=== PATIENT | male | born 1980 | race Two or more races ===

== ENCOUNTER 2024-02-06 05:43 | Emergency (ER) | payer MEDICAID, SELFPAY ==
[2024-02-06 05:44] VITALS: BMI 38.4
[2024-02-06 05:53] VITALS: BP 166/98; PULSE 103; RESP 19; TEMP 36.6; O2SAT 97
--- NOTE | 2024-02-06 06:10 | XR_ITS ---
Examination: Testicular sonography complete Technique: By resolution grayscale sonographic images testes, assessment arterial inflow venous outflow Doppler spectral analysis carful analysis Exam date and time: February 06, 2024 0725 hrs. Indications: Worsening bilateral testicular pain beginning 2 months ago Findings: Right testis 3.3 x 2.7 x 3.9 cm Epididymis 10 mm 5 mm epididymal cyst Arterial flow testicle. No testicular mass Left testis 3.8 x 2.4 x 3.3 cm Epididymis 14 mm Arterial flow testicle. No testicular mass Mild hydrocele Impression: No testicular torsion or testicular mass Right epididymitis
--- NOTE | 2024-02-06 06:10 | XR_ITS ---
Examination: CT abdomen and pelvis without contrast. Coronal 3-D reconstructions. Sagittal 2-D reconstructions. Date and time of exam:February 06, 2024 0620 hrs. Comparison December 20, 2019 Indications: Testicular pain lower back pain radiating to the back bilateral flank pain 3 days CTDI: vol (mGy): 12.51 DLP: (mGycm): 897 Technique: Axial images of the abdomen have been obtained, 3 mm slice thickness Intravenous contrast material has not been administered. Low dose protocols were performed. One or more of the following dose reduction techniques were used; automated exposure control, adjustment of the mA and/or KV according to patient size, use of iterative reconstruction technique. Findings: Cirrhosis, liver nodular in contour, no focal liver lesions Spleen, 16 cm No pancreatic or mass No adrenal mass Aorta normal size No renal or ureteral calculi, no hydronephrosis Normal appendix No bowel obstruction or diverticulitis Urinary bladder wall thickening up to 13 mm No prostatomegaly Fat-containing inguinal hernias Mild osteopenia Moderate disc narrowing L2-L3 Partial visualization bilateral varicoceles Impression: Cirrhosis Splenomegaly, 16 cm No renal or ureteral calculi, no hydronephrosis Mild bilateral renal parenchymal scar formation Normal appendix Cystitis pattern Moderate degenerative disc disease L2-L3 Partial visualization bilateral varicoceles, recommend testicular sonography follow-up
--- NOTE | 2024-02-06 06:10 | PD.EDRME ---
Rapid Medical Screening Exam RME Arrival date/time: 02/06/24 05:43 43-year-old male presents emergency department complaints of testicular pain and flank pain Chief Complaint: Back Pain/Injury Time Seen by Provider: 02/06/24 06:04 Vital signs: Vital Signs Temperature 97.9 F 02/06/24 05:53 Pulse Rate 103 H 02/06/24 05:53 Respiratory Rate 19 02/06/24 05:53 Blood Pressure 166/98 H 02/06/24 05:53 Pulse Oximetry (%) 97 02/06/24 05:53 Oxygen Delivery Method Room Air 02/06/24 05:53
[2024-02-06] MEDS: KETOROLAC INJ 30 MG/ML VIAL IM (06:19)
[2024-02-06] MEDS: HYDROcodone/APAP 5/325 TABLET 1 TAB PO (06:19)
--- NOTE | 2024-02-06 07:32 | PC.NURSE ---
Pt moving in bed due to pain, reports he recently was medicated for pain and that it is beginning to help. Pt currently at [facility].
[2024-02-06 08:11] VITALS: BP 152/99; PULSE 90; RESP 15; TEMP 36.8; O2SAT 99
[2024-02-06 09:23] LABS: Basophils % (Auto) 1 % (0-2.5); Eosinophils # (Auto) 0.1 Thou/mm3 (0.0-0.5); Eosinophils % (Auto) 1 % (0-10); Hemoglobin 13.1 g/dL (13.5-16.0); Immature Granulocytes % (Auto) 0 % (0-0); Immature Granulocytes Auto 0.03 Thou/mm3 (0.00-0.00); Lymphocytes # (Auto) 1.6 Thou/mm3 (1.0-4.8); Lymphocytes % (Auto) 20 % (10-50); Mean Corpuscular HGB Conc 35.4 g/dl (31.0-37.0); Mean Corpuscular Hemoglobin 31.3 pg (25.0-35.0); Mean Corpuscular Volume 89 fL (80-100); Monocytes # (Auto) 0.5 Thou/mm3 (0.0-0.8); Monocytes % (Auto) 6 % (0-12); Neutrophils % (Auto) 72 % (37-80); Nucleated Red Blood Cell % 0 /100 WBC (0); Platelet Count 207 Thou/mm3 (140-440); RDW Standard Deviation 39.8 fL (35.1-43.9); Red Blood Count 4.18 Miln/mm3 (4.50-5.90); White Blood Count 8.3 Thou/mm3 (3.8-10.6)
--- NOTE | 2024-02-06 09:27 | PD.EDBACK ---
ED Back Injury Pain RME/HPI General Chief Complaint: Back Pain/Injury Stated Complaint: LOWER BACK AND TESTICLE PAIN Time Seen by Provider: 02/06/24 06:04 Arrival date/time: 02/06/24 05:43 RME / HPI RME / HPI Narrative: 02/06/24 05:43 43-year-old male presents emergency department complaints of testicular pain and flank pain DR. ALONSO MAIN ED EVALUATION 43 year old male with history of hypertension and chronic testicular pain presents to the ED for complaint of worsening lower back pain beginning 4 days ago. Pain described as aching that is located more on the right lower back. Aggravated with movements and feels a popping sensation when he bends forward. Reportedly took time off work on Tuesday due to the back pain and rested the weekend. However pain did not improve, prompting ED visit. Denies any injury or trauma at work. Patient additionally complains of testicular pain which is unchanged from his chronic pain. Reportedly had been evaluated by urologist years ago for the testicular pain and told he has a cyst that is too small to do anything about it . States pain recurred 2 months ago and followed up with PCP at [facility] in [place] where he was referred to a urologist; scheduled to see urologist mid February. Also completed a round of antibiotics then. Denies dysuria or penile drip. Denies fevers, chills, sweats. Related Data Home Medications ?Medication ?Instructions ?Recorded ?Confirmed lorazepam 1 mg tablet (Ativan) 1 mg PO QDAY PRN Anxiety 01/27/23 08/17/23 Previous Rx's ?Medication ?Instructions ?Recorded doxycycline hyclate 100 mg capsule 100 mg PO BID #14 caps 12/11/23 diazepam 10 mg tablet (Valium) 10 mg PO BID PRN muscle spasm #3 02/06/24 tabs Allergies Allergy/AdvReac Type Severity Reaction Status Date / Time No Known Allergies Allergy Verified 08/16/23 05:57 Review of Systems Review of Systems Narrative Review of Systems: Gen: No fever, no chills, no weight loss EYES: No discharge, no visual changes, no pain HEENT: No ear pain, no congestion, no sore throat PULM: no shortness of breath, no cough, no congestion CV: No chest pain, no dyspnea on exertion, no palpitations, no chest tightness GI: No nausea, no vomiting, no diarrhea, no pain, no constipation : No frequency, no urgency,? no dysuria. +testicular pain Musc/skel: No joint pain, +back pain Skin: No rash, no ecchymosis, no lesions Psyc: No hallucinations, no depression Heme/Lymph: No easy bleeding or bruising tendencies Neuro: No weakness, no headache Past Medical History Past Medical History CARDIAC: Positive Cardiac Disorders and Hypercholesterolemia GASTROINTESTINAL: Positive Gastrointestinal Disorders, Cirrhosis, Gastrointestinal Bleed and Obesity MUSCULOSKELETAL: Positive Musculoskeletal Disorders PSYCHO/SOCIAL: Positive Anxiety OTHER HISTORY: Positive Hospitalization and Chicken Pox Family History FAMILY HISTORY: Negative Family Psychiatric Problems, Family Respiratory Disorders, Family Cardiac Disorders, Family Gastrointestinal Problems, Family Cancer, Family Surgery or Family Anesthesia Reaction Surgical History SURGICAL: Positive Knee Sx (Right Knee); Negative Vasectomy Social History SMOKING STATUS: Never smoker ED Exam Narrative Physical exam: GENERAL APPEARANCE: AxOx4, no obvious distress, nontoxic appearing HEENT: NC, AT. MMM. EOMI, clear conjunctiva, oropharynx clear. NECK: Supple without lymphadenopathy. No stiffness or restricted ROM. HEART: Normal rate and regular rhythm, normal S1/S1, no m/r/g LUNGS: CTAB, moving air well. No crackles or wheezes are heard. ABDOMEN: Soft, nontender, nondistended with good bowel sounds heard. BACK: Paraspinal muscle tenderness around L3-L5 area. Negative straight leg raise. No midline C/T spine pain or deformity, No CVAT, no obvious deformity. EXTREMITIES: Without cyanosis, clubbing or edema. MUSCULOSKELETAL: FROM of all major joints, no chest tenderness NEUROLOGICAL: Grossly nonfocal. Negative straight leg raise. Alert and oriented, moving all 4 extremities. CN not formally tested but appear grossly intact. Skin: Warm and dry without any rash. Course Quality Measures none Orders Category Date Time Status CT abdomen pelvis wo con Stat Exams 02/06/24 06:10 Completed US testicular Stat Exams 02/06/24 06:10 Completed CBC Stat Lab 02/06/24 09:01 Completed Comprehensive Metabolic Panel Stat Lab 02/06/24 09:01 Completed Drug Screen,Urine Stat Lab 02/06/24 06:10 Ordered Lipase Stat Lab 02/06/24 09:01 Completed UA, C/S IF [Urinalysis, C/S if Indicated] Stat Lab 02/06/24 06:10 Ordered Diazepam [Valium] Med 02/06/24 09:10 Discontinued 10 mg PO X1 ONE HYDROcodone*/APAP 5/325 [Crump 5/325] Med 02/06/24 06:10 Discontinued 1 tab PO X1 ONE Ketorolac Inj [Toradol Inj] Med 02/06/24 06:10 Discontinued 30 mg IM X1 ONE Reevaluation(s) Reevaluation #1: I discussed with the patient that the pain is chronic and ultrasound today showed epididymitis. Advised we would not treat and states he is okay with that and will follow up with his urologist next month February. Patient remains clinically stable throughout the emergency department visit. Patient is amenable to discharge. Strict return precautions were outlined. Patient was discharged in stable condition. Time: 09:45 Vital Signs Vital signs: Vital Signs Temperature 97.9 F 02/06/24 05:53 Pulse Rate 103 H 02/06/24 05:53 Respiratory Rate 19 02/06/24 05:53 Blood Pressure 166/98 H 02/06/24 05:53 Pulse Oximetry (%) 97 02/06/24 05:53 Oxygen Delivery Method Room Air 02/06/24 05:53 Pulse ox is 97% on room air which is adequate. Back Pain / Injury MDM Narrative MDM Narrative:: Munira Daily am scribing for and in the presence of Dr. Alonso. Patient data External records reviewed:: [facility] previous records (I reviewed ED visit on 12/11/2023 for epidydimitis ) Clinical information provided by:: patient Social determinants that could affect healthcare access:: none Patient has the following chronic illnesses:: hypertension and chronic testicular pain How is presenting disease/condition affected by chronic disease/condition?: exacerbated by Evaluation data The following diagnostics were reviewed and interpreted by me:: lab results and radiology exam(s) Lab and/or radiology exams considered but not ordered:: None Interpretation Summary: Ordering Physician: Asa HUFFMAN)Antoni NP Date of Service: 02/06/24 Procedure(s): CT abdomen pelvis wo con Accession Number(s): [id number] cc: Asa HUFFMAN)Antoni NP; Danie Watson MD~ Examination: CT abdomen and pelvis without contrast. Coronal 3-D reconstructions. Sagittal 2-D reconstructions. Date and time of exam:February 06, 2024 0620 hrs. Comparison December 20, 2019 Indications: Testicular pain lower back pain radiating to the back bilateral flank pain 3 days CTDI: vol (mGy): 12.51 DLP: (mGycm): 897 Technique: Axial images of the abdomen have been obtained, 3 mm slice thickness Intravenous contrast material has not been administered. Low dose protocols were performed. One or more of the following dose reduction techniques were used; automated exposure control, adjustment of the mA and/or KV according to patient size, use of iterative reconstruction technique. Findings: Cirrhosis, liver nodular in contour, no focal liver lesions Spleen, 16 cm No pancreatic or mass No adrenal mass Aorta normal size No renal or ureteral calculi, no hydronephrosis Normal appendix No bowel obstruction or diverticulitis Urinary bladder wall thickening up to 13 mm No prostatomegaly Fat-containing inguinal hernias Mild osteopenia Moderate disc narrowing L2-L3 Partial visualization bilateral varicoceles Impression: Cirrhosis Splenomegaly, 16 cm No renal or ureteral calculi, no hydronephrosis Mild bilateral renal parenchymal scar formation Normal appendix Cystitis pattern Moderate degenerative disc disease L2-L3 Partial visualization bilateral varicoceles, recommend testicular sonography follow-up Dictated By:Danie Watson MD Signed By:<Electronically signed by Danie Watson MD in [place]>02/06/24 0716 Ordering Physician: Asa HUFFMAN)Antoni NP Date of Service: 02/06/24 Procedure(s): US testicular Accession Number(s): [id number] cc: Antoni Bray NP, NP; Danie Watson MD; NO PRIMARY/FAMILY,PHYSICIAN~ Examination: Testicular sonography complete Technique: By resolution grayscale sonographic images testes, assessment arterial inflow venous outflow Doppler spectral analysis carful analysis Exam date and time: February 06, 2024 0725 hrs. Indications: Worsening bilateral testicular pain beginning 2 months ago Findings: Right testis 3.3 x 2.7 x 3.9 cm Epididymis 10 mm 5 mm epididymal cyst Arterial flow testicle. No testicular mass Left testis 3.8 x 2.4 x 3.3 cm Epididymis 14 mm Arterial flow testicle. No testicular mass Mild hydrocele Impression: No testicular torsion or testicular mass Right epididymitis Dictated By:Danie Watson MD Signed By:<Electronically signed by Danie Watson MD in OV>02/06/24 0820 Medications / Prescriptions Medications or Prescriptions considered but not ordered:: None Medication administrations:: Medication Administration History Discontinued Medications Hydrocodone Bitart/Acetaminophen (Hydrocodone/Apap 5/325 Tablet) 1 tab PO X1 ONE Stop: 02/06/24 06:11 Last Admin: 02/06/24 06:19 Dose: 1 tab Documented By: CVL Diazepam (Diazepam 5 Mg Tablet) 10 mg PO X1 ONE Stop: 02/06/24 09:11 Ketorolac Tromethamine (Ketorolac Inj 30 Mg/Ml Vial) 30 mg IM X1 ONE Stop: 02/06/24 06:11 Last Admin: 02/06/24 06:19 Dose: 30 mg Documented By: CVL See above Consultations Consultation(s) initiated? (list below): No Diagnosis Differential diagnosis back pain/injury: lumbar radiculopathy, sciatica, strain of lumbar region and discitis Most likely diagnosis given after review of the tests above:: Lumbar radiculopathy Admission Indicated Admission indicated?: not indicated Admission Request Was there a request for admission?: No Disposition Plan Disposition Plan: Discharge Discharge Attestation Discharge Attestation: The patient and all family members were given an opportunity to ask questions and understood the discharge instructions. Discharge instructions specifically effects, indications for sooner follow up or return to the emergency department, and the expected course of current diagnosis. Patient condition: Stable Discharge Plan Plan Patient Disposition: HOME (Self Care) Prescriptions/Referrals Prescriptions/Med Rec: New diazepam [Valium] 10 mg tablet 10 mg PO BID PRN (Reason: muscle spasm) Qty: 3 0RF No Action lorazepam [Ativan] 1 mg Tablet 1 mg PO QDAY PRN (Reason: Anxiety) doxycycline hyclate 100 mg capsule 100 mg PO BID Qty: 14 0RF Referrals: No Primary/Family,Physician [Primary Care Provider] - In 1 week Problem List Clinical Impression: Lumbar radiculopathy Patient/Caregiver Discharge Instructions Education Materials: Back Safety: Lifting, Back Safety: Basics of Good Posture, Back Exercises: Hip Rotator Stretch Additional Instructions: Follow-up with your primary care doctor as scheduled. Also follow-up with your urology appointment as scheduled. You can return to the emergency department sooner if symptoms worsen or if you notice any new, concerning issues. Print Language: Iraqi Stand Alone Forms: [employer]ore Award Info., Work/School Release, Patient Portal Info Letter
[2024-02-06 09:42] LABS: Alanine Aminotransferase 51 U/L (10-49); Albumin, Serum 4.4 gm/dL (3.5-5.0); Albumin/Globulin Ratio 1.4 (1.2-2.2); Alkaline Phosphatase 43 U/L (46-116); Anion Gap 6 (7-16); Aspartate Amino Transferase 32 U/L (0-34); BUN/Creatinine Ratio 20 Ratio (12-20); Bilirubin,Total 0.4 mg/dL (0.3-1.2); Blood Urea Nitrogen 14 mg/dL (9-23); Calcium 10.3 mg/dL (8.3-10.6); Calcium (Corrected) 10.3 mg/dL (8.5-10.1); Carbon Dioxide 25.8 mMol/L (20.0-31.0); Chloride 102 mMol/L (98-107); Creatinine (Component) 0.7 mg/dL (0.6-1.3); Estimated Creatinine Clearance 168.9 mL/min (>60); Globulin 3.1 gm/dL (2.3-3.5); Glucose 116 mg/dL (74-106); Lipase 65 U/L (12-53); Osmolality,Calculated 269 (275-295); Potassium 3.9 mMol/L (3.4-5.1); Sodium 134 mMol/L (136-145); Total Protein 7.5 gm/dL (5.7-8.2); eGFR > 60 See Note
[2024-02-06] MEDS: DIAZEPAM 5 MG TABLET 10 MG PO (10:10)
--- NOTE | 2024-02-06 10:15 | CHAP ---
Patient expressed gratitude for visit and prayer.
== END 2024-02-06 10:17 | disposition home or self-care (01) ==
PROVIDERS: Nurse Practitioner Primary Care; Emergency Provider Emergency Medicine
DX: N45.1 Epididymitis (principal); K74.60 Unspecified cirrhosis of liver; R16.1 Splenomegaly, not elsewhere classified; N28.89 Other specified disorders of kidney and ureter; I86.1 Scrotal varices; M51.16 Intervertebral disc disorders with radiculopathy, lumbar region
CPT/HCPCS: 36415; 74176; 76870; 80053; 80307; 81001; 83690; 85025; 96372; 99284; J1885; A9270

== ENCOUNTER 2024-05-09 12:15 | Day surgery (SDC) | payer MEDICAID, SELFPAY ==
[2024-05-08 11:40] VITALS: BMI 36.9
[2024-05-09] VITALS (10 sets, daily range): BP systolic 112–142; BP diastolic 78–98; PULSE 81–95; RESP 13–20; TEMP 36.6–36.7; O2SAT 97–100; BMI 36.1
[2024-05-09] MEDS: RINGERS LACTATED 1000 ML 1,000 ML 100 ML IV (14:58)
[2024-05-09] MEDS: DiphenhydrAMINE INJ 50 MG/ML VIAL 25 MG IV (15:00)
[2024-05-09] MEDS: fentaNYL CIT INJ 50 mCg/ML AMP 2ML (ASD USE ONLY) IV (15:01)
[2024-05-09] MEDS: MIDAZOLAM INJ 1 MG/ML VIAL 2 ML (ASD USE ONLY) 2 MG IV (15:02)
--- NOTE | 2024-05-09 15:23 | SUR.PHASEII ---
pateint into recovery with no acute distress noted, v/s stable, no complaints of pain or nausea at this time, patient passing flatus, report received from Radha XIONG.
== END 2024-05-09 16:07 | disposition home or self-care (01) ==
PROVIDERS: Referring Provider Surgery; Visit Provider Surgery
PROC: 0DBE8ZX Excision of Large Intestine, Via Natural or Artificial Opening Endoscopic, Diagnostic (ICD-10-PCS; CPT 45380; principal; 2024-05-09 13:45)
DX: Z12.11 Encounter for screening for malignant neoplasm of colon (principal)
CPT/HCPCS: 45378; J1200; J2250; J3010; J7120

== ENCOUNTER 2024-05-17 02:23 | Inpatient (IN) | payer MEDICAID, SELFPAY ==
[2024-05-17] VITALS (9 sets, daily range): BP systolic 108–165; BP diastolic 81–105; PULSE 82–96; RESP 16–26; TEMP 36.3–37.1; O2SAT 98–100; BMI 37.9; BMI 36.3
--- NOTE | 2024-05-17 03:12 | XR_ITS ---
Examination: CT abdomen with intravenous contrast CT pelvis with intravenous contrast 2-D coronal reconstructions 2-D sagittal reconstructions Date and time of exam:May 17, 2024 0428 hrs. Comparison February 06, 2024 Indications: Colonoscopy 2 days ago followed by left lower quadrant abdominal pain. CTDI: vol (mGy) 14.3 DLP: (mGycm) 971 Technique: Multiple axial sections of the abdomen and pelvis have been obtained. 64 slice high-resolution scanner used. 3 mm axial sections have been obtained, post intravenous injection 60 cc [id number] 2-D sagittal, coronal reconstructions obtained. Low dose protocols were performed. One or more of the following dose reduction techniques were used; automated exposure control, adjustment of the mA and/or KV according to patient size, use of iterative reconstruction technique. Findings: Mild wall thickening of the distal esophagus Cirrhosis, liver nodular in contour, no focal liver lesions No gallstones No pancreatic or adrenal mass Splenomegaly 16 cm No hydronephrosis Aorta normal size Multiple fluid distended small bowel loops measuring up to 3.7 cm in dimension 6 mm fat-containing umbilical hernia defect Normal appendix Colonic diverticulosis, no diverticulitis Mild enlargement prostate Fat-containing inguinal hernias Degenerative change lumbar spine Impression: Cirrhosis Splenomegaly Small bowel obstruction pattern, consider Gastrografin small bowel series follow-up
--- NOTE | 2024-05-17 03:13 | EDRME_ITS ---
Rapid Medical Screening Exam [facility] Arrival date/time: 05/17/24 02:23 43M with history of HTN, DM and alcohol use presents to ED with LLQ pain and N/V after his colonoscopy last week by Dr. Robert. Only diverticulosis was found. Chief Complaint: Abdominal Pain Vital signs: Vital Signs Temperature 97.7 F 05/17/24 03:01 Pulse Rate 92 05/17/24 03:01 Respiratory Rate 19 05/17/24 03:01 Blood Pressure 145/93 H 05/17/24 03:01 Pulse Oximetry (%) 99 05/17/24 03:01 Oxygen Delivery Method Room Air 05/17/24 03:01
[2024-05-17] MEDS: ONDANSETRON INJ 2 MG/ML INJ 2 ML 4 MG IV (03:29)
[2024-05-17 03:41] LABS: Basophils % (Auto) 0 % (0-2.5); Eosinophils # (Auto) 0.1 Thou/mm3 (0.0-0.5); Eosinophils % (Auto) 1 % (0-10); Hematocrit 38.8 % (41.0-53.0); Hemoglobin 14.2 g/dL (13.5-16.0); Immature Granulocytes % (Auto) 0 % (0-0); Immature Granulocytes Auto 0.03 Thou/mm3 (0.00-0.00); Lymphocytes # (Auto) 1.5 Thou/mm3 (1.0-4.8); Lymphocytes % (Auto) 19 % (10-50); Mean Corpuscular HGB Conc 36.6 g/dl (31.0-37.0); Mean Corpuscular Hemoglobin 29.8 pg (25.0-35.0); Mean Corpuscular Volume 81 fL (80-100); Monocytes # (Auto) 0.8 Thou/mm3 (0.0-0.8); Monocytes % (Auto) 10 % (0-12); Neutrophils # (Auto) 5.4 Thou/mm3 (1.8-7.7); Neutrophils % (Auto) 69 % (37-80); Nucleated Red Blood Cell % 0 /100 WBC (0); Platelet Count 192 Thou/mm3 (140-440); RDW Standard Deviation 37.8 fL (35.1-43.9); Red Blood Count 4.77 Miln/mm3 (4.50-5.90); White Blood Count 7.8 Thou/mm3 (3.8-10.6)
[2024-05-17 03:56] LABS: Alanine Aminotransferase 18 U/L (10-49); Albumin, Serum 4.6 gm/dL (3.5-5.0); Albumin/Globulin Ratio 1.4 (1.2-2.2); Alkaline Phosphatase 42 U/L (46-116); Anion Gap 9 (7-16); Aspartate Amino Transferase 21 U/L (0-34); BUN/Creatinine Ratio 14 Ratio (12-20); Bilirubin,Total 0.6 mg/dL (0.3-1.2); Blood Urea Nitrogen 10 mg/dL (9-23); Calcium 9.6 mg/dL (8.3-10.6); Calcium (Corrected) 9.6 mg/dL (8.5-10.1); Carbon Dioxide 26.6 mMol/L (20.0-31.0); Chloride 99 mMol/L (98-107); Creatinine (Component) 0.7 mg/dL (0.6-1.3); Estimated Creatinine Clearance 167.9 mL/min (>60); Globulin 3.2 gm/dL (2.3-3.5); Glucose 118 mg/dL (74-106); Lipase 105 U/L (12-53); Osmolality,Calculated 270 (275-295); Potassium 3.5 mMol/L (3.4-5.1); Sodium 135 mMol/L (136-145); Total Protein 7.8 gm/dL (5.7-8.2); eGFR > 60 See Note
[2024-05-17] MEDS: LORazepam 2 MG/ML VIAL IVP (04:06)
--- NOTE | 2024-05-17 04:23 | PC.NURSE ---
Pt to CT scan via wheelchair at this time.
[2024-05-17 04:39] LABS: Alcohol, Blood Medical < 3.0 mg/dL (0-10.0)
--- NOTE | 2024-05-17 05:20 | PRELIM_ITS ---
CT scan of the abdomen and pelvis with intravenous contrast (axial sections with sagittal and coronal reformats) May 17, 2024 at 0428 hours Clinical History: LLQ pain after colonoscopy Comparison: None Findings: A small hiatal hernia is present. There is mild wall thickening of the distal esophagus, which may be related to reflux esophagitis. The liver demonstrates surface nodularity with relative hypertrophy of the left lobe and caudate lobe, suggestive of cirrhosis. No focal hepatic lesions are seen. The main portal vein is dilated measuring 1.9 cm, suggestive of portal hypertension. There are small perigastric, and perisplenic collaterals. There is mild splenomegaly measuring 15.5 cm. The gallbladder, pancreas, kidneys and adrenals are unremarkable. There are multiple dilated small bowel loops demonstrates air fluid levels with probable transition in the proximal ileum. The mid and distal ileal loops are collapsed. There is no obstructing mass or hernia at the site of transition. There are multiple colonic diverticula without evidence of diverticulitis. The appendix is within normal limits (images [id number]). There is no mesenteric or retroperitoneal adenopathy. The aorta and its branches demonstrate atheromatous calcification without evidence of aneurysm. The urinary bladder is unremarkable. The prostate is mildly enlarged. There are [id number] sized fat containing bilateral inguinoscrotal hernias. No evidence of incarceration. There are small varicoceles in the scrotal sac. There is no free fluid or free air. Degenerative changes are identified in the spine. Impression: 1. Findings suggestive of small bowel obstruction with probable transition in the proximal ileum, likely related to adhesions. No evidence of bowel perforation or abscess. 2. Cirrhosis of liver with portal hypertension. 3. Other findings as described above. Report Electronically Signed By: Debra Barrera 05/17/2024 5:20:22 AM [EST]
--- NOTE | 2024-05-17 06:31 | PD.EDABDPN ---
ED Abdominal Pain RME/HPI General Chief Complaint: Abdominal Pain Stated complaint: LLQ PAIN X 2 DAYS WORSENING TODAY Time seen by provider: 05/17/24 06:31 Arrival date/time: 05/17/24 02:23 RME / HPI RME / HPI narrative: 05/17/24 02:23 43M with history of HTN, DM and alcohol use but quit 3 months ago as he now has cirrhosis presents to ED with abdominal distention with pain and N/V states he is vomiting 5 times a day and relates this to his colonoscopy for blood in the stool. Last week by Dr. Robert. Only diverticulosis was found. Related Data Home Medications ?Medication ?Instructions ?Recorded ?Confirmed folic acid 1 mg tablet 1 mg PO DAILY 05/08/24 05/09/24 lisinopril 40 mg tablet 40 mg PO DAILY 05/08/24 05/09/24 metformin 500 mg tablet 500 mg PO QDAY 05/08/24 05/09/24 Allergies Allergy/AdvReac Type Severity Reaction Status Date / Time No Known Allergies Allergy Verified 05/17/24 02:27 Review of Systems Review of Systems Narrative Review of Systems: Constitutional: DENIES; Fevers Eyes: DENIES; Loss of vision Head/Ear/Nose: DENIES; Loss of hearing Throat: DENIES; Dysphagia Cardiovascular: DENIES; Chest pain, dyspnea or syncope Respiratory: DENIES; Shortness of breath Gastrointestinal: +abd pain, nausea, vomiting, blood in stool Genitourinary: DENIES; Dysuria (painful or difficult urination) Musculoskeletal: DENIES; Arthralgia (pain in a joint),; Skin: DENIES; Rash Neurological: DENIES; Loss of function or movement Psychiatric: DENIES; recent major life stressor, emotional problem, illicit drug use or abuse Endocrinology: DENIES; Weight change Hematologic/Lymphatic: DENIES; Abnormal bruising Allergic/Immunologic: DENIES; Urticaria (hives) Past Medical History Past Medical History CARDIAC: Positive Cardiac Disorders and Hypercholesterolemia GASTROINTESTINAL: Positive Gastrointestinal Disorders, Cirrhosis, Gastrointestinal Bleed and Obesity ENDOCRINE: Positive Diabetes Mellitus Type 2 PSYCHO/SOCIAL: Positive Anxiety OTHER HISTORY: Positive Hospitalization and Chicken Pox Family History FAMILY HISTORY: Negative Family Psychiatric Problems, Family Respiratory Disorders, Family Cardiac Disorders, Family Gastrointestinal Problems, Family Cancer, Family Surgery or Family Anesthesia Reaction Surgical History SURGICAL: Negative Vasectomy Social History SMOKING STATUS: Never smoker ED Exam Narrative Physical exam: Physical Exam: General: The vital signs were reviewed. The patient is non-toxic, in no apparent distress and appears healthy with a patent airway, no respiratory distress and has no apparent circulatory problems. Head & Scalp: Normocephalic, atraumatic. Face: Appears normal and is without lesions, deformity. Ears: Left external pinna appears normal. Right external pinna appears normal. Eyes: The sclera is anicteric. No obvious photophobia. The Left and Right Orbit/Lid/Conjunctiva appears normal without swelling, discoloration or injection. Nose: The nose is without deformity, discharge or tenderness; Throat: Appears normal. The mucous membranes are pink and moist without exudates, redness or mass seen. The tongue appears normal. Neck: The neck is supple and no apparent mass or adenopathy. Chest: The chest wall is normal in size and symmetry and has no chest wall tenderness or crepitus. The patient displays normal ventilator effort without retractions, accessory muscle use and has adequate air movement bilaterally with no wheezes and no rales. Cardiovascular: Regular rate and rhythm; No murmurs, rubs, or gallops; Gastrointestinal: The abdomen is rotund and distended there are bowel sounds present . No obvious hernias or mass. The abdomen has mild tenderness diffusely Bowel sounds are present and normal sounding. No CVA tenderness. Genitourinary: Back/Spine: Normal Spektor and Extremities/Musculoskeletal/lymphatic: The bilateral upper and lower extremities are warm. There is no evidence of arterial insufficiency. There is no evidence of venous insufficiency/edema. The patient spontaneously moves bilateral upper and lower extremities with no pain and no limitation of movement. There is no apparent, injury or trauma. Skin: The skin is warm, dry and intact. No rashes. No petechia. No purpura. No abnormal bruising. The color is appropriate with no cyanosis. Mental status/Psychiatric: Mental status is appropriate for age. The patient has no apparent delusions, visual hallucinations, no apparent audible hallucinations. The patient has no apparent suicidal thoughts/ideation and no apparent homicidal thoughts/ideation. Neurological: The patient is awake, alert, interactive, cordial, cooperative and is oriented to name and situation. The patient follows commands and answers historical question with no impairment. There is no visual disturbance apparent. The pupils are equal and reactive bilaterally with normal eye movements and no diplopia The bilateral upper and lower extremities have normal strength, normal range of motion and normal functioning. The gait, station and balance were not tested due to acuity Course Quality Measures none Orders Category Date Time Status Admit to Inpatient Status Routine Admission 05/17/24 08:59 Active Patient Condition Routine Admission 05/17/24 08:59 Ordered Aspiration precautions NOW Care 05/17/24 09:[address] Screening NOW Care 05/17/24 03:13 Active Flu & Pneumonia Vaccine Screen ONCE Care 05/17/24 08:59 Active Insert IV NOW Care 05/17/24 03:12 Active NG / OG Tube to LIS NOW Care 05/17/24 06:39 Completed NPO NOW Care 05/17/24 09:00 Active Notify provider NEEDED Care 05/17/24 08:59 Active Sequential Compression Device QSHIFT Care 05/17/24 08:59 Active Consult to General Surgery Stat Cons 05/17/24 09:03 Ordered Diet NPO (NOW) Diet 05/17/24 09:[address] abdomen pelvis w con Stat Exams 05/17/24 03:12 Completed XR chest 1V post procedure Stat Exams 05/17/24 08:40 Taken XR small bowel single contrast Stat Exams 05/17/24 08:59 Ordered Alcohol, Blood Medical Stat Lab 05/17/24 03:28 Completed CBC AM DRAW Lab 05/18/24 05:00 Ordered CBC AM DRAW Lab 05/19/24 05:00 Ordered CBC AM DRAW Lab 05/20/24 05:00 Ordered CBC AM DRAW Lab 05/21/24 05:00 Ordered CBC AM DRAW Lab 05/22/24 05:00 Ordered CBC Stat Lab 05/17/24 03:28 Completed CMP [Comprehensive Metabolic Panel] Stat Lab 05/17/24 03:28 Completed Comprehensive Metabolic Panel AM DRAW Lab 05/18/24 05:00 Ordered Comprehensive Metabolic Panel AM DRAW Lab 05/19/24 05:00 Ordered Comprehensive Metabolic Panel AM DRAW Lab 05/20/24 05:00 Ordered Comprehensive Metabolic Panel AM DRAW Lab 05/21/24 05:00 Ordered Comprehensive Metabolic Panel AM DRAW Lab 05/22/24 05:00 Ordered Lactic Acid [Lactate (Lactic Acid)] Stat Lab 05/17/24 08:40 Ordered Lipase Stat Lab 05/17/24 03:28 Completed Magnesium AM DRAW Lab 05/18/24 05:00 Ordered Magnesium AM DRAW Lab 05/19/24 05:00 Ordered Magnesium AM DRAW Lab 05/20/24 05:00 Ordered Magnesium AM DRAW Lab 05/21/24 05:00 Ordered Magnesium AM DRAW Lab 05/22/24 05:00 Ordered Prothrombin Time with INR Stat Lab 05/17/24 09:02 Ordered UA [Urinalysis] Stat Lab 05/17/24 07:50 Completed Acetaminophen Tab [Tylenol Tab] Med 05/17/24 08:59 Active 650 mg PO Q6H PRN LORazepam [Ativan Inj] Med 05/17/24 04:04 Discontinued 2 mg IVP X1 ONE Metoclopramide [Reglan] Med 05/17/24 08:59 Active 10 mg PO Q6H PRN Ondansetron Inj [Zofran Inj] Med 05/17/24 03:12 Discontinued 4 mg IV X1 ONE Sodium Chloride 0.9% 1000 ml [Ns] 1,000 ml Med 05/17/24 09:00 Active IV 100 mls/hr Code Status Routine Oth 05/17/24 08:59 Ordered Vital Signs Vital signs: Vital Signs Temperature 97.7 F 05/17/24 03:01 Pulse Rate 92 05/17/24 03:01 Respiratory Rate 19 05/17/24 03:01 Blood Pressure 145/93 H 05/17/24 03:01 Pulse Oximetry (%) 99 05/17/24 03:01 Oxygen Delivery Method Room Air 05/17/24 03:01 Pulse ox is 99% on room air which is adequate. Abdominal Pain MDM MDM Narrative MDM Narrative:: Patient 43-year-old who comes in with distended abdomen for 7 days post colonoscopy with a white count of 7.8 hemoglobin of 14 to normal platelets CMP is essentially normal with sodium 135 potassium 3.5 BUN 10 creatinine 0.7 glucose is 118 AST ALT within normal limits. Bilirubin is 0.6. Albumin is 4.6. But most importantly CT scan came back positive for a small bowel obstruction. Patient will need to be admitted. Because he is unable to put an NG tube. Patient data External records reviewed:: [facility] previous records Clinical information provided by:: patient Social determinants that could affect healthcare access:: alcohol use Patient has the following chronic illnesses:: hypertension, diabetes, cirrhosis How is presenting disease/condition affected by chronic disease/condition?: exacerbated by Evaluation data The following diagnostics were reviewed and interpreted by me:: lab results and radiology exam(s) Lab and/or radiology exams considered but not ordered:: none Interpretation Summary: Ordering Physician: Oleg Renteria PA-C Date of Service: 05/17/24 Procedure(s): CT abdomen pelvis w con Accession Number(s): [id number] cc: Leodan Solorzano; Danie Watson MD; Oleg Renteria PA-C~ Examination: CT abdomen with intravenous contrast CT pelvis with intravenous contrast 2-D coronal reconstructions 2-D sagittal reconstructions Date and time of exam:May 17, 2024 0428 hrs. Comparison February 06, 2024 Indications: Colonoscopy 2 days ago followed by left lower quadrant abdominal pain. CTDI: vol (mGy) 14.3 DLP: (mGycm) 971 Technique: Multiple axial sections of the abdomen and pelvis have been obtained. 64 slice high-resolution scanner used. 3 mm axial sections have been obtained, post intravenous injection 60 cc [id number] 2-D sagittal, coronal reconstructions obtained. Low dose protocols were performed. One or more of the following dose reduction techniques were used; automated exposure control, adjustment of the mA and/or KV according to patient size, use of iterative reconstruction technique. Findings: Mild wall thickening of the distal esophagus Cirrhosis, liver nodular in contour, no focal liver lesions No gallstones No pancreatic or adrenal mass Splenomegaly 16 cm No hydronephrosis Aorta normal size Multiple fluid distended small bowel loops measuring up to 3.7 cm in dimension 6 mm fat-containing umbilical hernia defect Normal appendix Colonic diverticulosis, no diverticulitis Mild enlargement prostate Fat-containing inguinal hernias Degenerative change lumbar spine Impression: Cirrhosis Splenomegaly Small bowel obstruction pattern, consider Gastrografin small bowel series follow-up Dictated By: Danie Watson MD Signed By: <Electronically signed by Danie Watson MD in OV> 05/17/24 0651 Medications / Prescriptions Medications or Prescriptions considered but not ordered:: none Medication administrations:: Medication Administration History Acetaminophen (Acetaminophen 325 Mg Tablet) 650 mg PO Q6H PRN PRN Reason: PAIN SCALE 1-3 (mild Stop: 06/16/24 08:58 Sodium Chloride (Ns) 1,000 mls @ 100 mls/hr IV .Q10H DEIRDRE Stop: 06/16/24 08:59 Metoclopramide HCl (Metoclopramide 5 Mg Tablet) 10 mg PO Q6H PRN PRN Reason: NAUSEA OR VOMITING Stop: 06/16/24 08:58 Discontinued Medications Lorazepam (Lorazepam 2 Mg/Ml Vial) 2 mg IVP X1 ONE Stop: 05/17/24 04:05 Last Admin: 05/17/24 04:06 Dose: 2 mg Documented By: KG Ondansetron HCl (Ondansetron Inj 2 Mg/Ml Inj 2 Ml) 4 mg IV X1 ONE; Protocol Stop: 05/17/24 03:13 Last Admin: 05/17/24 03:29 Dose: 4 mg Documented By: KG see above Consultations Consultation(s) initiated? (list below): Yes Consultation #1 (Physician, Specialty, Details): I spoke with hospitalist team regarding admission. Diagnosis Differential diagnosis abdominal pain: abdominal pain, calculus of kidney, constipation, diverticulitis, pancreatitis and small bowel obstruction Most likely diagnosis given after review of the tests above:: SBO hx of etoh abuse cirrhosis vomiting Admission Indicated Admission indicated?: indicated Admission Request Was there a request for admission?: Yes Admission Attestation Admission request attestation: Discussed case with [] from Hospitalist service regarding admission. Discussed patients ED course, exam findings, labs, and radiology results. The Hospitalist [agrees,declines] to accept the patient for admission. Disposition Plan Disposition Plan: Admit Discharge Plan Plan Patient Disposition: Admit Acute Care w/in Hospital Problem List Clinical Impression: SBO (small bowel obstruction), History of ETOH abuse, Cirrhosis, Vomiting
[2024-05-17 08:31] LABS: Collection Type, Urine Clean Catch
--- NOTE | 2024-05-17 08:40 | XR_ITS ---
Examination: AP chest single view TECHNIQUE: AP portable semiupright chest single view Exam date and time: May 17, 2024 0858 hours INDICATIONS: Post orogastric tube placement FINDINGS: Orogastric tube sidehole is at the GE junction Mild prominence left ventricle No pneumonia or pulmonary edema IMPRESSION: Advance the orogastric tube 5 cm
[2024-05-17 08:47] LABS: Bacteria,Urine Rare; Bilirubin,Urine Negative (Negative); Blood,Urine Negative (Negative); Clarity,Urine Clear (Clear/Hazy); Color,Urine Lt-Yellow (Lt Yel-Yel); Glucose, Urine Negative (Negative); Ketones,Urine Negative (Negative); Leukocyte Esterase,Urine Negative (Negative); Nitrite,Urine Negative (Negative); PH,Urine 7.5 (5.0-7.0); Protein,Urine Negative (Neg - Trace); RBC,Urine 2 /hpf (0-3); Specific Gravity,Urine 1.026 (1.001-1.035); Squamous Epithelial Cell,Urine < 1 /hpf (0-5); Urobilinogen,Urine Negative mg/dL (0.0-1.0); WBC,Urine 1 /hpf (0-5)
--- NOTE | 2024-05-17 08:59 | XR_ITS ---
Examination: Small bowel series 7 spot fluoroscopic films of the stomach and small bowel AP supine abdomen films 20 minutes, 45 minutes postcontrast administration Exam date and time: 2024 0955 hours INDICATIONS: Abdominal pain and distention this week, small bowel obstruction pattern on CT abdomen pelvis May 17, 2024 0428 hours TECHNIQUE AND FINDINGS: Patient received 120 cc Gastrografin through the orogastric tube 7 spot fluoroscopic films of the stomach Fluoroscopy 0.1 minute radiation dose 29.21 milligray Abdomen films 20 minutes and 45 minutes demonstrate contrast in significantly air distended small bowel loops IMPRESSION: Small bowel obstruction pattern Multiple additional delayed films will be obtained
--- NOTE | 2024-05-17 11:33 | PC.CC ---
Patient is a 43 year-old who presents to the hospital for abdominal pain. Julia WHEAT made [id number] contact with patient. ASW introduced self, role, and reason for visit. Patient appeared alert and oriented to self, location, and situation. Patient confirmed information on the demographics and reports to living at home with his parents. Patient's next of kin is Sarina Espinosa . At home patient is ambulatory and completes his own ADLs. Patient does not use any DME at home. His primary care provider is Leodan Solorzano and uses [facility]. Upon discharge the patient plans to return back home. counseling services director to follow up with any discharge needs.
--- NOTE | 2024-05-17 11:43 | ESHP_ITS ---
<Statement entered by Chelsea Gann MD - 05/17/24 16:56> I discussed with and supervised the internal recruiter physician who took care of this patient. I personally saw and examined the patient and discussed the assessment and plan with the entire medicine team, including my attending Dr. Madrid, I agree with the assessment and plan as documented below Patient seen and examined at bedside today. Labs and imaging reviewed. 43-year-old man with past medical history of diabetes mellitus type 2, alcohol induced cirrhosis, history of diverticulosis, hypertension who came to the ED with chief complaint of severe abdominal pain. Patient stated approximately since last night started presenting after eating some tacos severe epigastric and left flank pain associated nausea and multiple episode of vomiting of bilious characteristics. Patient stated that approximately a week ago underwent colonoscopy and since then has been presenting some mild discomfort on the abdomen. At the ED patient was hypertensive, tachycardic saturating well on room air. Pertinent labs show elevated lipase 105, WBCs within normal limits, UA was negative, U tox was negative alcohol levels were negative. CT abdomen showed cirrhosis with splenomegaly and small bowel obstruction pattern. NG tube was placed to LIS, abdominal series with Gastrografin was ordered, general surgery was consulted and patient was admitted for further treatment and management of small bowel obstruction. Chelsea Gann MD PGY-3 Disclaimer: Despite multiple revisions, due to the dictation software being used, the document bellow may not be free of grammatical errors including phonetic/typographic errors. However, this does not deter from our commitment to providing health care in the patient's best interest in mind. Documentation for date of: 05/17/24 HPI History of Present Illness Chief complaint: Abdominal pain History of present illness: 43-year-old male with past medical history of hypertension, diabetes, cirrhosis, diverticulosis who came to the ED due to abdominal pain. Patient is scribes the pain in epigastric and left side of the abdomen. Patient also having nausea and vomiting total of 9 episodes prior to arriving to the ED nonbloody, nonbilious, mostly food particles. Of note patient did state he ate some weird tacos a 2 days ago. Patient used to be an alcoholic however he states he quit alcohol about approximately 3 months ago. Patient states he attributes his symptoms to colonoscopy had a week ago. On abdominal CT scan patient was found to have small bowel obstruction pattern patient will be admitted for small bowel obstruction. ED course: Vitals on arrival blood pressure 145/93, heart rate 92, saturating 99% on room air. Labs significant for lipase 105, alk phos 42, UA negative, toxicology negative for alcohol. Abdominal CT shows Cirrhosis, Splenomegaly, Small bowel obstruction pattern, consider Gastrografin small bowel series follow-up. NG tube was placed in the ED and was given Zofran, pantoprazole, lorazepam 2 mg PMHx: As above SxHx: Right knee surgery Social Hx: Quit drinking 3 months ago, denies cigarette use, denies illicit substances including THC F Hx: Unknown Review of Systems Review of Systems Narrative Review of Systems: Narrative ROS GENERAL: Denies fevers/chills or diaphoresis. HEENT: Denies headache or visual/hearing changes. Denies nasal discharge. NEURO: Denies unusual weakness or difficulty speaking. CARDIO: Denies chest pain or palpitations. PULM: Denies SOB, coughing, or wheezing. GI: + abdominal pain, +N/V/C/D/reflux/gas, denies bright red blood per rectum or melena. Reports having BMs. URO: Denies burning/itching/pain/urinary changes. MSK/EXT/SKIN: Denies joint/skeletal/muscle pain, issues/changes in upper or lower extremities, itchiness, or superficial pain. PSYCH: Cooperative, pleasant mood & affect. The rest of the review of systems is otherwise negative. Exam Vital Signs Temp Pulse Resp BP Pulse Ox O2 Del Method 98 F 96 18 160/97 H 100 Room Air 05/17/24 11:30 05/17/24 11:30 05/17/24 11:30 05/17/24 11:30 05/17/24 11:30 05/17/24 11:30 Narrative Exam Physical Exam GENERAL: NAD, AAOx3 HEENT: dry mucosa. Eyes open, symmetrical, & clear, NGT in place CARDIO: Heart RRR, no obvious murmurs PULM: No noted coughing/dyspnea CTA B/L, no R/W/R GI: Abdomen soft, distended, pain on palpation on left lower quadrant and epigastric regions.hypoactive bowel sounds SKIN/MSK/EXT: No wounds/rashes/edema/amputations, no pain on palpation. Pedal pulses present B/L NEURO: AAOx3, no focal neuro deficits, able to move all 4 extremities Results: Labs 05/18/24 05:11 05/18/24 05:11 Labs: Short CBC 05/17/24 Range/Units 03:28 WBC 7.8 (3.8-10.6) Thou/mm3 Hgb 14.2 (13.5-16.0) g/dL Hct 38.8 L (41.0-53.0) % Plt Count 192 (140-440) Thou/mm3 BMP 05/17/24 03:28 Sodium 135 L Potassium 3.5 Chloride 99 Carbon Dioxide 26.6 BUN 10 Creatinine 0.7 Glucose 118 H Calcium 9.6 Liver Function 05/17/24 Range/Units 03:28 Total Bilirubin 0.6 (0.3-1.2) mg/dL AST 21 (0-34) U/L ALT 18 (10-49) U/L Alkaline Phosphatase 42 L (46-116) U/L Albumin 4.6 (3.5-5.0) gm/dL Urine 05/17/24 Range/Units 07:50 Urine Color Lt-Yellow (Lt Yel-Yel) Urine Clarity Clear (Clear/Hazy) Urine pH 7.5 H (5.0-7.0) Ur Specific [place] 1.026 (1.001-1.035) Urine Protein Negative (Neg - Trace) Urine Glucose (UA) Negative (Negative) Quality Measures Quality Measures none Medications Home Medications and Allergies Home Medications ?Medication ?Instructions ?Recorded ?Confirmed ?Type folic acid 1 mg tablet 1 mg PO DAILY 05/08/2405/18 History lisinopril 40 mg tablet 40 mg PO DAILY 05/08/2410/05 History metformin 500 mg tablet 500 mg PO QDAY 05/08/2410/05 History Allergies Allergy/AdvReac Type Severity Reaction Status Date / Time No Known Allergies Allergy Verified 05/17/24 02:27 Visit Medications Acetaminophen (Acetaminophen 325 Mg Tablet) 650 mg PO Q6H PRN PRN Reason: PAIN SCALE 1-3 (mild Stop: 06/16/24 08:58 Sodium Chloride (Ns) 1,000 mls @ 100 mls/hr IV .Q10H DEIRDRE Stop: 06/16/24 08:59 Metoclopramide HCl (Metoclopramide 5 Mg Tablet) 10 mg PO Q6H PRN PRN Reason: NAUSEA OR VOMITING Stop: 06/16/24 08:58 Discontinued Medications Bisacodyl (Bisacodyl 10 Mg Supp) 10 mg OR X1 ONE; Protocol Stop: 05/17/24 11:25 Lorazepam (Lorazepam 2 Mg/Ml Vial) 2 mg IVP X1 ONE Stop: 05/17/24 04:05 Last Admin: 05/17/24 04:06 Dose: 2 mg Ondansetron HCl (Ondansetron Inj 2 Mg/Ml Inj 2 Ml) 4 mg IV X1 ONE; Protocol Stop: 05/17/24 03:13 Last Admin: 05/17/24 03:29 Dose: 4 mg Assessment & Plan Plan 42-year-old male history of hypertension, diabetes, cirrhosis who came to the ED to left lower quadrant abdominal pain with nausea and vomiting. Will be admitted for small bowel obstruction #Small bowel obstruction Patient came in with abdominal pain in the left lower quadrant epigastric region Patient has been having nausea and vomiting about [address] scan showed small bowel obstruction Small bowel series ordered shows obstruction relieving Patient passing flatus ? Encourage ambulation ? suppository given by general surgery ? N.p.o. ? Zofran ? NG tube light intermittent suction ? General Surgery Dr Carrington consulted, appreciate recommendations ? IV fluids at 100 cc/h #Type 2 noninsulin dependent Diabetes mellitus ? SSI ? Hypoglycemia protocol #Hypertension Per chart review patient takes lisinopril 40 mg daily Will resume when appropriate Case discussed with my senior Dr. Clements PGY-[address] Julius Moe MD PGY-1 Disposition: Med telemetry Fluids: NS Feeding: N.p.o. Thrombo prophylaxis: Heparin Gastric Ulcer prophylaxis: Pantoprazole CODE STATUS: Full code Attending Provider Attestation/Addendum Radha Daily DO, attest that I was physically present for the ramos portions of the service and evaluated the patient with the resident and I reviewed and discussed the case with the resident and agree with the resident's findings and plans of care as documented above Patient is a 43-year-old male with past medical history of hypertension with diabetes, cirrhosis, diverticulosis who was brought to the ED due to worsening abdominal pain. Patient states the pain began about 2 days ago. He reports diffuse and sharp pain and endorses nausea and vomiting since 5 PM yesterday. His last meal was yesterday evening after he ate [employer]. CT abdomen pelvis was done in the ED showing evidence of small bowel obstruction. Patient has never had previous episodes of SBO in the past. He did undergo a colonoscopy 2 days ago during which he was found to have sigmoid diverticulosis and otherwise negative colonoscopy. Will admit patient to med/telemetry for further workup and management of SBO. Surgery was consulted. NG tube placed in the ED on low intermittent suction. Will follow with small bowel follow-through.
[2024-05-17 11:44] LABS: Lactate (Lactic Acid) 0.8 mMol/L (0.4-2.0)
--- NOTE | 2024-05-17 12:00 | XR_ITS ---
Examination: Abdomen AP single view Technique: AP portable supine abdomen, single view Exam date and time: May 18, 1999 2519 hours INDICATIONS: 1.5 hour delayed film post small bowel series today, abdominal pain and distention, small bowel obstruction on CT abdomen pelvis May 17, 2024 FINDINGS: Contrast distended small bowel loops measuring up to 7 cm in dimension IMPRESSION: Small bowel obstruction pattern
[2024-05-17 12:03] LABS: INR 1.1 (0.9-1.3)
[2024-05-17] MEDS: bisacodyL 10 MG SUPP PR (13:19)
[2024-05-17] MEDS: SODIUM CHLORIDE 0.9% 1000 ML 1,000 ML 100 ML IV (13:19)
--- NOTE | 2024-05-17 13:30 | PD.SURCONS ---
HPI Consult details Consult date: 05/17/24 Reason for consultation narrative: Small bowel obstruction History of present illness: 43-year-old male with history of hypertension, alcohol use disorder (stopped drinking over 6 months ago) underwent colonoscopy last week that revealed diverticular disease. He states that he was eating and tolerating diet and was having bowel movement after colonoscopy. However, over the past 2 days he has had worsening abdominal pain with nausea and vomiting. His last bowel movement was yesterday. A CT scan revealed dilated loops of small bowel suggestive of small bowel obstruction without free air. An NG tube was placed and patient has been admitted for further management. His symptoms slightly improved and he started passing flatus. Review of Systems Constitutional Constitutional: Denies chills and Denies fever(s) Cardiovascular Cardiovascular: Denies chest pain Respiratory Respiratory: Denies cough Gastrointestinal Gastrointestinal: Reports abdominal pain, Denies nausea and Reports vomiting Genitourinary Genitourinary: Denies difficulty urinating Hematologic/Lymphatic Hematologic/Lymphatic: Denies easy bleeding and Denies easy bruising Past Medical History Surgical History OTHER SURGICAL HX: Arthroscopic right knee surgery Social History SMOKING STATUS: Never smoker SUBSTANCE USE: former substance user ALCOHOL: Former Meds Home Medications and Allergies Home Medications ?Medication ?Instructions ?Recorded ?Confirmed ?Type folic acid 1 mg tablet 1 mg PO DAILY 05/08/24 05/09/24 History lisinopril 40 mg tablet 40 mg PO DAILY 05/08/24 05/09/24 History metformin 500 mg tablet 500 mg PO QDAY 05/08/24 05/09/24 History Allergies Allergy/AdvReac Type Severity Reaction Status Date / Time No Known Allergies Allergy Verified 05/17/24 02:27 Exam Vital Signs Temp Pulse Resp BP Pulse Ox O2 Del Method 98 F 96 18 160/97 H 100 Room Air 05/17/24 11:30 05/17/24 11:30 05/17/24 11:30 05/17/24 11:30 05/17/24 11:30 05/17/24 11:30 Constitutional Constitutional: no acute distress Routine Abdominal Exam Comments: Abdomen is soft and mildly distended. He has minimal tenderness to deep palpation throughout abdomen, no rebound tenderness or peritonitis at this time. No obvious hernia defects noted Results Results: Laboratory Laboratory results: results reviewed Results: Imaging CT scan - abdomen: report reviewed and image reviewed CT scan - pelvis: report reviewed and image reviewed Assessment & Plan Problem List (1) SBO (small bowel obstruction): Status: Acute Plan Agree with current management. Continue NG tube decompression. Awaiting for small bowel series. Patient is advised to increase ambulation
[2024-05-17] MEDS: PANTOPRAZOLE INJ 40 MG VIAL IV (14:22)
--- NOTE | 2024-05-17 14:30 | XR_ITS ---
Examination: Abdomen AP single view Technique: AP portable supine abdomen, single view Exam date and time: May 17, 2024 1424 hrs. Indications: Forearm delayed film post small bowel series today. Findings: Contrast distended small bowel loops However, contrast is present in the colon Impression: Negative for complete small bowel obstruction No further films are needed
--- NOTE | 2024-05-17 16:30 | XR_ITS ---
Examination: Abdomen AP single view Technique: AP portable supine abdomen, single view Exam date and time: May 17, 2024 1635 hrs. Indications: 6 hour delayed film post small bowel series today, abdominal pain and distention this week. Findings: Contrast in distended small bowel loops However significant contrast is present: Impression: Negative for complete small bowel obstruction No further films are needed
--- NOTE | 2024-05-17 18:30 | XR_ITS ---
Examination: Abdomen AP single view Technique: AP portable supine abdomen, single view Exam date and time: May 17, 2024 1823 hrs. Indications: Abdominal pain and distention this week, 8 hour delayed film post small bowel series Findings: Almost all contrast is in the colon Impression: Negative for complete small bowel obstruction No further films are needed
--- NOTE | 2024-05-17 20:25 | PC.NURSE ---
Received call from radiology, no further films needed follow up with MD if suction is needed.
--- NOTE | 2024-05-17 20:45 | PC.NURSE ---
Called Dr. Leon regarding radiology call and report from small bowel series alogn with pt request to have NGT out and if any PO intake can be started, MD to look at report and chart and input orders.
[2024-05-18] VITALS: BP 132/93; PULSE 83; PULSE 85; RESP 17; TEMP 36.3; O2SAT 98
[2024-05-18] MEDS: SODIUM CHLORIDE 0.9% 1000 ML 1,000 ML 100 ML IV (00:10)
[2024-05-18 04:00] VITALS: BP 144/92; PULSE 91; RESP 17; TEMP 36.5; O2SAT 97
[2024-05-18 05:16] VITALS: PULSE 90
[2024-05-18 05:45] LABS: Basophils % (Auto) 0 % (0-2.5); Eosinophils # (Auto) 0.1 Thou/mm3 (0.0-0.5); Eosinophils % (Auto) 2 % (0-10); Hematocrit 37.3 % (41.0-53.0); Hemoglobin 13.1 g/dL (13.5-16.0); Immature Granulocytes % (Auto) 0 % (0-0); Immature Granulocytes Auto 0.02 Thou/mm3 (0.00-0.00); Lymphocytes # (Auto) 1.7 Thou/mm3 (1.0-4.8); Lymphocytes % (Auto) 31 % (10-50); Mean Corpuscular HGB Conc 35.1 g/dl (31.0-37.0); Mean Corpuscular Hemoglobin 29.6 pg (25.0-35.0); Mean Corpuscular Volume 84 fL (80-100); Monocytes # (Auto) 0.5 Thou/mm3 (0.0-0.8); Monocytes % (Auto) 10 % (0-12); Neutrophils # (Auto) 3.1 Thou/mm3 (1.8-7.7); Neutrophils % (Auto) 57 % (37-80); Nucleated Red Blood Cell % 0 /100 WBC (0); Platelet Count 175 Thou/mm3 (140-440); RDW Standard Deviation 40.1 fL (35.1-43.9); Red Blood Count 4.42 Miln/mm3 (4.50-5.90); White Blood Count 5.5 Thou/mm3 (3.8-10.6)
[2024-05-18 06:22] LABS: Alanine Aminotransferase 11 U/L (10-49); Albumin, Serum 3.7 gm/dL (3.5-5.0); Albumin/Globulin Ratio 1.2 (1.2-2.2); Alkaline Phosphatase 38 U/L (46-116); Anion Gap 7 (7-16); Aspartate Amino Transferase 17 U/L (0-34); BUN/Creatinine Ratio 10 Ratio (12-20); Bilirubin,Total 0.9 mg/dL (0.3-1.2); Blood Urea Nitrogen 8 mg/dL (9-23); Calcium 8.5 mg/dL (8.3-10.6); Calcium (Corrected) 8.7 mg/dL (8.5-10.1); Carbon Dioxide 27.3 mMol/L (20.0-31.0); Chloride 104 mMol/L (98-107); Creatinine (Component) 0.8 mg/dL (0.6-1.3); Estimated Creatinine Clearance 143.7 mL/min (>60); Glucose 101 mg/dL (74-106); Osmolality,Calculated 273 (275-295); Phosphorous 3.5 mg/dL (2.4-5.1); Potassium 4.4 mMol/L (3.4-5.1); Sodium 138 mMol/L (136-145); Total Protein 6.7 gm/dL (5.7-8.2); eGFR > 60 See Note
[2024-05-18 08:00] VITALS: BP 130/94; PULSE 80; PULSE 96; RESP 17; TEMP 36.3; O2SAT 97
[2024-05-18] MEDS: PANTOPRAZOLE INJ 40 MG VIAL IV (08:04)
[2024-05-18 12:00] VITALS: BP 155/105; PULSE 81; PULSE 87; RESP 16; TEMP 36.2; O2SAT 98
--- NOTE | 2024-05-18 12:00 | ESPR_ITS ---
Documentation for date of: 05/18/24 Subjective Subjective Narrative: Patient is seen and examined. He is feeling much better. Small bowel series did not show evidence of bowel obstruction. His NG tube was removed and he was started on diet, he is tolerating well and had multiple bowel movements Exam Vital Signs Temp Pulse Resp BP Pulse Ox O2 Del Method 97.4 F 96 17 130/94 H 97 Room Air 05/18/24 08:00 05/18/24 08:00 05/18/24 08:00 05/18/24 08:00 05/18/24 08:00 05/18/24 08:00 Constitutional Constitutional: no acute distress Routine Abdominal Exam Abdominal: Present soft and normoactive bowel sounds; Absent tenderness or diste nded Assessment & Plan Assessment Additional comments: Small bowel obstruction resolved Plan May discharge home
[2024-05-18 12:19] VITALS: BP 155/105; PULSE 86
[2024-05-18] MEDS: Lisinopril 20 MG TABLET 40 MG PO (12:19)
--- NOTE | 2024-05-18 15:18 | ESDS_ITS ---
<Statement entered by Radha Madrid DO - 05/19/24 07:31> I, Radha Madrid DO, attest that I was physically present for the ramos portions of the service and evaluated the patient with the resident and I reviewed and discussed the case with the resident and agree with the resident's findings and plans of care as documented above <Statement entered by Kaity Osborn MD - 05/18/24 17:11> I discussed with and supervised the internal controls analyst physician who took care of this patient. I personally saw and examined the patient and discussed the assessment and plan with the entire medicine team, including my attending Dr. Madrid, I agree with most of the assessment and plan as documented below Kaity Osborn M.D. PGY-2 Disclaimer: Despite multiple revisions, due to the dictation software being used, the document bellow may not be free of grammatical errors including phonetic/typographic errors. However, this does not deter from our commitment to providing health care in the patient's best interest in mind. Planned Discharge Date 05/18/24 DS: Providers Provider Date of admission: 05/17/24 09:22 Primary care physician: ELIZABETH Dai Admitting Provider: Radha Madrid DO Attending Provider on Admission: Radha Madrid DO Consults: 05/17/24 09:03 Consult to General Surgery Stat Comment: Consulting Provider: Christopher Carrington 05/17/24 13:51 [facility] Referral - Safety Routine Comment: Positive screening for safety needs. Attending Provider on DC: Radha Madrid DO Discharging Provider: Nahun Moe MD Anticipated date of discharge: 05/18/24 DS: Diagnosis Problem List Completed Was Problem List Reviewed/Reconciled?: Yes Hospital Course Hospital Course Hospital course: 43-year-old male with past medical history of hypertension, diabetes, cirrhosis, diverticulosis who came to the ED due to abdominal pain. Patient is scribes the pain in epigastric and left side of the abdomen. Patient also having nausea and vomiting total of 9 episodes prior to arriving to the ED nonbloody, nonbilious, mostly food particles. Of note patient did state he ate some weird tacos a 2 days ago. Patient used to be an alcoholic however he states he quit alcohol about approximately 3 months ago. Patient states he attributes his symptoms to colonoscopy had a week ago. On abdominal CT scan patient was found to have small bowel obstruction pattern patient will be admitted for small bowel obstruction. During hospital stay patient was found with small bowel obstruction on CT scan. Patient was decompressed with nasogastric tube on low intermittent suction, bowel rest, IV hydration and pain control. Patient had small bowel series and bowel regimen and small bowel obstruction was relieved. Patient has since been tolerating PO diet. Diabetes was managed with sliding scale insulin hypoglycemia protocol. Hypertension managed with patient's home medication. At this time patient is medically stable for discharge. All questions were answered and recommendations were given to come at the ED at anytime is he is not doing well or symptoms come back. follow up with PCP 1 week after discharge. Continue home medications as prescribed. Problem list: #Small bowel obstruction #Type 2 noninsulin dependent Diabetes mellitus #Hypertension Case discussed with my senior Dr. Osborn PGY-[address] Julius Moe MD PGY-1 Status at Discharge Functional status at discharge: independent ambulation Overall status at discharge: patient is back to baseline Time Spent with Patient Time attestation: Total time spent providing and/or coordinating discharge services: Time spent: Greater than 30 minutes Exam Vital Signs Temp Pulse Resp BP Pulse Ox O2 Del Method 97.2 F 86 16 155/105 H 98 Room Air 05/18/24 12:00 05/18/24 12:19 05/18/24 12:00 05/18/24 12:19 05/18/24 12:00 05/18/24 12:00 Narrative Exam Physical Exam GENERAL: NAD, AAOx3 HEENT: dry mucosa. Eyes open, symmetrical, & clear CARDIO: Heart RRR, no obvious murmurs PULM: No noted coughing/dyspnea CTA B/L, no R/W/R GI: Abdomen soft, no tenderness to palpation, bowel sounds appreciated SKIN/MSK/EXT: No wounds/rashes/edema/amputations, no pain on palpation. Pedal pulses present B/L NEURO: AAOx3, no focal neuro deficits, able to move all 4 extremities Discharge Plan Plan Patient Disposition: HOME (Self Care) Patient condition on transfer: Stable Care Plan Goals: all questions were answer and recommendations were given to come at the ED at anytime is he is not doing well or symptoms come back. follow up with PCP 1 week after discharge. - continue home medications Prescriptions/Referrals Prescriptions/Med Rec: Continued metformin 500 mg tablet 500 mg PO QDAY Patient Comments: TAKE 1 TABLET BY MOUTH EVERY DAY WITH A MEAL FOR 90 DAYS folic acid 1 mg tablet 1 mg PO DAILY Patient Comments: TAKE 1 TABLET BY MOUTH TWICE A DAY lisinopril 40 mg tablet 40 mg PO DAILY Patient Comments: TAKE 1 TABLET BY MOUTH EVERY DAY Referrals: Leodan Solorzano FNP [Primary Care Provider] - Patient/Caregiver Discharge Instructions Discharge Activity: activity as tolerated Education Materials: Small Bowel Obstruction Print Language: Guinean Stand Alone Forms: [employer] Award Info., Patient Portal Info Letter, Work/Release Restrictions Discharge Order Discharge Orders: Discharge (Routine); Ordered 05/18/24 Ordered By: Chelsea Gann Quality Discharge Quality Measures VTE prophylaxis
== END 2024-05-18 15:18 | disposition home or self-care (01) | DRG 247 ==
LOC: SERX 06:38 → SERHOLD 09:23 → S3SX 12:08
PROVIDERS: Physician Assistant; Student in an Organized Health Care Education/Training Program; Admitting Provider Internal Medicine; Emergency Provider Emergency Medicine; PCP Nurse Practitioner Family; Visit Provider Internal Medicine
DX: K56.609 Unspecified intestinal obstruction, unspecified as to partial versus complete obstruction (principal); K70.30 Alcoholic cirrhosis of liver without ascites; I10 Essential (primary) hypertension; E11.9 Type 2 diabetes mellitus without complications; R16.1 Splenomegaly, not elsewhere classified; F10.11 Alcohol abuse, in remission; Z87.19 Personal history of other diseases of the digestive system; Z79.84 Long term (current) use of oral hypoglycemic drugs; Z79.899 Other long term (current) drug therapy
CPT/HCPCS: 36415; 74018; 74177; 74250; 80053; 80320; 81001; 83605; 83690; 83735; 84100; 85025; 85610; 93225; 96374; 96375; 99285; A4649; J2060; J2405; J2470; J7030; Q9963; Q9967; A9270; G0480

== ENCOUNTER 2024-10-31 10:03 | Emergency (ER) | payer MEDICAID, SELFPAY ==
[2024-10-31 10:04] VITALS: BMI 37.6
[2024-10-31 10:13] VITALS: BP 160/92; PULSE 104; RESP 18; TEMP 36.7; O2SAT 96
--- NOTE | 2024-10-31 10:20 | PD.EDRME ---
Rapid Medical Screening Exam RME Arrival date/time: 10/31/24 10:03 44-year-old male presents to the emergency department today complains of right lower abdominal pain and abdominal swelling Chief Complaint: Abdominal Pain Time Seen by Provider: 10/31/24 10:17 Vital signs: Vital Signs Temperature 98.0 F 10/31/24 10:13 Pulse Rate 104 H 10/31/24 10:13 Respiratory Rate 18 10/31/24 10:13 Blood Pressure 160/92 H 10/31/24 10:13 Pulse Oximetry (%) 96 10/31/24 10:13 Oxygen Delivery Method Room Air 10/31/24 10:13
[2024-10-31 10:37] LABS: Basophils # (Auto) 0.0 Thou/mm3 (0.0-0.2); Basophils % (Auto) 1 % (0-2.5); Eosinophils # (Auto) 0.1 Thou/mm3 (0.0-0.5); Eosinophils % (Auto) 2 % (0-10); Hematocrit 41.1 % (41.0-53.0); Hemoglobin 14.0 g/dL (13.5-16.0); Immature Granulocytes Auto 0.01 Thou/mm3 (0.00-0.00); Lymphocytes # (Auto) 1.7 Thou/mm3 (1.0-4.8); Lymphocytes % (Auto) 31 % (10-50); Mean Corpuscular HGB Conc 34.1 g/dl (31.0-37.0); Mean Corpuscular Hemoglobin 29.9 pg (25.0-35.0); Mean Corpuscular Volume 88 fL (80-100); Monocytes # (Auto) 0.5 Thou/mm3 (0.0-0.8); Monocytes % (Auto) 8 % (0-12); Neutrophils # (Auto) 3.2 Thou/mm3 (1.8-7.7); Neutrophils % (Auto) 57 % (37-80); Nucleated Red Blood Cell # 0.00 Thou/mm3 (0.00-0.00); Nucleated Red Blood Cell % 0 /100 WBC (0); Platelet Count 188 Thou/mm3 (140-440); RDW Standard Deviation 41.5 fL (35.1-43.9); Red Blood Count 4.68 Miln/mm3 (4.50-5.90); White Blood Count 5.6 Thou/mm3 (3.8-10.6)
[2024-10-31 10:56] LABS: Alanine Aminotransferase 15 U/L (10-49); Albumin, Serum 4.4 gm/dL (3.5-5.0); Albumin/Globulin Ratio 1.5 (1.2-2.2); Alkaline Phosphatase 47 U/L (46-116); Anion Gap 10 (7-16); Aspartate Amino Transferase 19 U/L (0-34); BUN/Creatinine Ratio 18 Ratio (12-20); Bilirubin,Total 0.5 mg/dL (0.3-1.2); Blood Urea Nitrogen 14 mg/dL (9-23); Calcium 9.6 mg/dL (8.3-10.6); Calcium (Corrected) 9.6 mg/dL (8.5-10.1); Carbon Dioxide 27.2 mMol/L (20.0-31.0); Chloride 104 mMol/L (98-107); Creatinine (Component) 0.8 mg/dL (0.6-1.3); Estimated Creatinine Clearance 144.7 mL/min (>60); Globulin 2.9 gm/dL (2.3-3.5); Glucose 102 mg/dL (74-106); Lipase 140 U/L (12-53); Osmolality,Calculated 281 (275-295); Potassium 3.7 mMol/L (3.4-5.1); Sodium 141 mMol/L (136-145); Total Protein 7.3 gm/dL (5.7-8.2); eGFR > 60 See Note
[2024-10-31 11:07] LABS: Collection Type, Urine Clean Catch; Squamous Epithelial Cell,Urine 0 /hpf (0-5)
--- NOTE | 2024-10-31 11:08 | XR_ITS ---
Examination: CT abdomen with intravenous contrast CT pelvis with intravenous contrast 2-D coronal reconstructions 2-D sagittal reconstructions Date and time of exam:October 31, 2024 1208 hours INDICATIONS: Onset right lower abdominal pain today, diagnosis cirrhosis, splenomegaly COMPARISON: May 17, 2024. CTDI: vol (mGy) 14.9 DLP: (mGycm) 1052 Technique: Multiple axial sections of the abdomen and pelvis have been obtained. 64 slice high-resolution scanner used. 3 mm axial sections have been obtained, post intravenous injection 60 cc [id number] 2-D sagittal, coronal reconstructions obtained. Low dose protocols were performed. One or more of the following dose reduction techniques were used; automated exposure control, adjustment of the mA and/or KV according to patient size, use of iterative reconstruction technique. Findings: Cirrhosis, liver nodular in contour, no focal liver lesions Contracted gallbladder Splenomegaly 16 cm No pancreatic or adrenal mass No ascites No renal or ureteral calculi, no hydronephrosis Normal appendix No bowel obstruction Colonic diverticulosis, no diverticulitis Transverse prostate dimension 4.1 cm Urinary bladder wall thickening 3 mm Moderate osteopenia IMPRESSION: Cirrhosis Significant splenomegaly No ascites No renal or ureteral calculi, no hydronephrosis Normal appendix No bowel obstruction Mild cystitis pattern
[2024-10-31 11:24] LABS: Alcohol, Urine Negative (Negative); Amphetamine/Methamp Scrn,U Positive (Negative); Barbiturate Screen,Urine Negative (Negative); Benzodiazepines Screen,Urine Negative (Negative); Benzoylecgonine Screen, Ur Negative (Negative); Fentanyl Screen,Urine Negative (Negative); Opiate Screen,Urine Negative (Negative); THC Screen,Urine Negative (Negative)
[2024-10-31] MEDS: KETOROLAC INJ 30 MG/ML VIAL IM (11:34)
[2024-10-31 11:38] LABS: Bilirubin,Urine Negative (Negative); Blood,Urine Negative (Negative); Clarity,Urine Clear (Clear/Hazy); Color,Urine Yellow (Lt Yel-Yel); Culture Indicated,Urine Not Indicated; Glucose, Urine Negative (Negative); Ketones,Urine Negative (Negative); Leukocyte Esterase,Urine Negative (Negative); Nitrite,Urine Negative (Negative); PH,Urine 6.0 (5.0-7.0); Protein,Urine Negative (Neg - Trace); RBC,Urine 2 /hpf (0-3); Specific Gravity,Urine 1.024 (1.001-1.035); Urobilinogen,Urine Negative mg/dL (0.0-1.0); WBC,Urine 1 /hpf (0-5)
--- NOTE | 2024-10-31 13:09 | PD.EDABDPN ---
ED Abdominal Pain RME/HPI General Chief Complaint: Abdominal Pain Stated complaint: LUMP RLQ ABD Time seen by provider: 10/31/24 10:17 Arrival date/time: 10/31/24 10:03 Source: patient Limitations: no limitations RME / HPI RME / HPI narrative: Patient is 44-year-old male with a history of hypertension, diabetes, and ongoing alcohol abuse. He has known cirrhosis. He states he has decreased his drinking but still drinks every other day . He denies any recent nausea or vomiting. No changes in bowel movements. No flank pain or dysuria. No fevers or chills. He states he has ongoing abdominal distention and has developed a right sided abdominal discomfort. He has no other acute complaints or concerns. Related Data Home Medications ?Medication ?Instructions ?Recorded ?Confirmed folic acid 1 mg tablet 1 mg PO DAILY 05/08/24 05/18/24 lisinopril 40 mg tablet 40 mg PO DAILY 05/08/24 05/18/24 metformin 500 mg tablet 500 mg PO QDAY 05/08/24 05/18/24 Allergies Allergy/AdvReac Type Severity Reaction Status Date / Time No Known Allergies Allergy Verified 10/31/24 10:05 Review of Systems Review of Systems Systems Reviewed: All systems reviewed, normal except as documented ED Exam General Limitations: Present no limitations General appearance: Present alert and in no apparent distress Head Head exam: Present atraumatic Eye Eye exam: Present normal appearance, PERRL and EOMI ENT ENT exam: Present normal exam, normal oropharynx and mucous membranes moist Neck Neck exam: Present normal inspection, full ROM and trachea midline Chest Chest inspection: Present normal inspection and symmetric chest wall rise Respiratory Respiratory exam: Present normal lung sounds bilaterally Cardiovascular Cardiovascular exam: Present regular rate, normal rhythm and normal heart sounds Abdominal Exam Abdominal exam: Present soft and distention; Absent tenderness or rebound Extremities Exam Extremities exam: Present normal inspection and full ROM Back Exam Back exam: Present normal inspection and full ROM Neurological Exam Neurological exam: Present alert and oriented X3 Psychiatric Psychiatric exam: Present normal affect and normal mood Skin Skin exam: Present warm, dry, intact and normal color Course Quality Measures none Orders Category Date Time Status CT Screening NOW Care 10/31/24 11:08 Active Insert IV NOW Care 10/31/24 11:[address] abdomen pelvis w con Stat Exams 10/31/24 11:08 Completed Alcohol, Urine Stat Lab 10/31/24 10:37 Completed CBC Stat Lab 10/31/24 10:26 Completed Comprehensive Metabolic Panel Stat Lab 10/31/24 10:26 Completed Drug Screen,Urine Stat Lab 10/31/24 10:37 Completed Lipase Stat Lab 10/31/24 10:26 Completed UA, C/S IF [Urinalysis, C/S if Indicated] Stat Lab 10/31/24 10:37 Completed Ketorolac Inj [Toradol Inj] Med 10/31/24 11:08 Discontinued 30 mg IM X1 ONE Vital Signs Vital signs: Vital Signs Temperature 98.0 F 10/31/24 10:13 Pulse Rate 104 H 10/31/24 10:13 Respiratory Rate 18 10/31/24 10:13 Blood Pressure 160/92 H 10/31/24 10:13 Pulse Oximetry (%) 96 10/31/24 10:13 Oxygen Delivery Method Room Air 10/31/24 10:13 Abdominal Pain MDM MDM Narrative MDM Narrative:: Patient is 44-year-old male with a history of hypertension, diabetes, and ongoing alcohol abuse. He has known cirrhosis. He states he has decreased his drinking but still drinks every other day . He denies any recent nausea or vomiting. No changes in bowel movements. No flank pain or dysuria. No fevers or chills. He states he has ongoing abdominal distention and has developed a right sided abdominal discomfort. He has no other acute complaints or concerns. On exam, patient is nontoxic-appearing and in no visible signs of distress. Vital signs are stable. His work appears essentially unremarkable for any acute intra-abdominal process. Patient was advised to discontinue alcohol abuse. Follow-up with his primary doctor. Be very cautious with acetaminophen. Return as needed for any worsening or emergent changes. Patient data External records reviewed:: None Clinical information provided by:: patient Social determinants that could affect healthcare access:: none Patient has the following chronic illnesses:: Cirrhosis, hypertension, alcohol abuse, diabetes How is presenting disease/condition affected by chronic disease/condition?: exacerbated by Evaluation data The following diagnostics were reviewed and interpreted by me:: lab results and radiology exam(s) Lab and/or radiology exams considered but not ordered:: n/a Interpretation Summary: Cirrhosis Medications / Prescriptions Medications or Prescriptions considered but not ordered:: n/a Medication administrations:: Medication Administration History Discontinued Medications Ketorolac Tromethamine (Ketorolac Inj 30 Mg/Ml Vial) 30 mg IM X1 ONE Stop: 10/31/24 11:09 Last Admin: 10/31/24 11:34 Dose: 30 mg Documented By: EMMY see above Consultations Consultation(s) initiated? (list below): No Diagnosis Differential diagnosis abdominal pain: abdominal pain, constipation, diverticulitis, gastroenteritis and pancreatitis Most likely diagnosis given after review of the tests above:: Chronic cirrhosis Admission Indicated Admission indicated?: not indicated Admission Request Was there a request for admission?: No Disposition Plan Disposition Plan: Discharge Discharge Attestation Discharge Attestation: The patient and all family members were given an opportunity to ask questions and understood the discharge instructions. Discharge instructions specifically effects, indications for sooner follow up or return to the emergency department, and the expected course of current diagnosis. Patient condition: Stable Discharge Plan Plan Patient Disposition: HOME (Self Care) Patient condition on transfer: Stable Prescriptions/Referrals Prescriptions/Med Rec: No Action metformin 500 mg tablet 500 mg PO QDAY Patient Comments: TAKE 1 TABLET BY MOUTH EVERY DAY WITH A MEAL FOR 90 DAYS folic acid 1 mg tablet 1 mg PO DAILY Patient Comments: TAKE 1 TABLET BY MOUTH TWICE A DAY lisinopril 40 mg tablet 40 mg PO DAILY Patient Comments: TAKE 1 TABLET BY MOUTH EVERY DAY Referrals: Leodan Solorzano FNP [Primary Care Provider] - In 1 week Problem List Clinical Impression: Cirrhosis Patient/Caregiver Discharge Instructions Education Materials: Alcoholism Resources, Alcoholism: Getting Help, ED Cirrhosis Additional Instructions: - It is very important that you stop drinking. - Follow-up with your primary doctor. - Return as needed for any worsening or emergent changes. Print Language: Barbadian Stand Alone Forms: [employer] Award Info., Patient Portal Info Letter
[2024-10-31 13:40] VITALS: BP 138/79; PULSE 89; RESP 19; TEMP 36.6; O2SAT 98
== END 2024-10-31 13:41 | disposition home or self-care (01) ==
PROVIDERS: Nurse Practitioner Primary Care; Emergency Provider Emergency Medicine; PCP Nurse Practitioner Family
DX: K74.60 Unspecified cirrhosis of liver (principal); E11.9 Type 2 diabetes mellitus without complications; I10 Essential (primary) hypertension; F10.10 Alcohol abuse, uncomplicated
CPT/HCPCS: 36415; 74177; 80053; 80307; 80320; 81001; 83690; 85025; 96372; 99283; A4649; J1885; Q9967; G0480